=== PATIENT | female | born 1955 | race Caucasian/White ===

== ENCOUNTER → 2018-10-05 | Outpatient (CLI) | payer BC ==
--- NOTE | 2018-10-05 13:00 | MM ---
Reason for exam: screening (asymptomatic). Last mammogram was performed 2 years and 3 months ago. History: Patient is postmenopausal. Took hormonal contraceptives for 7 months beginning at age 18. Physical Findings: A clinical breast exam by your physician is recommended on an annual basis and results should be correlated with mammographic findings. MG 3D Screening Mammo W/Cad Bilateral CC and MLO view(s) were taken. Prior study comparison: July 02, 2016, bilateral MG 3d screening mammo w/cad. January 23, 2015, right breast MG work up mamm w CAD RT. The breast tissue is heterogeneously dense. This may lower the sensitivity of mammography. There are benign appearing round calcifications bilaterally. Asymmetric breast tissue left anterior upper quadrant stable from 2015. There is no discrete abnormality. ASSESSMENT: Benign, BI-RAD 2 RECOMMENDATION: Routine screening mammogram of both breasts in 1 year.
== END | disposition home or self-care (01) ==
LOC: RADMAMWWP 09:56
PROVIDERS: ATTEND Family Medicine
DX: Z12.31 Encounter for screening mammogram for malignant neoplasm of breast (principal)
CPT/HCPCS: 77063; 77067

== ENCOUNTER → 2019-12-27 | Outpatient (CLI) | payer BC ==
--- NOTE | 2019-12-28 11:01 | MM ---
Reason for exam: screening (asymptomatic). Last mammogram was performed 1 year and 3 months ago. History: Patient is postmenopausal. Took hormonal contraceptives for 7 months beginning at age 18. Physical Findings: A clinical breast exam by your physician is recommended on an annual basis and results should be correlated with mammographic findings. MG Screening Mammo w CAD Bilateral CC and MLO view(s) were taken. Prior study comparison: October 05, 2018, bilateral MG 3d screening mammo w/cad. July 02, 2016, bilateral MG 3d screening mammo w/cad. The breast tissue is heterogeneously dense. This may lower the sensitivity of mammography. Benign appearing bilateral calcifications. No suspicious abnormality. No significant changes when compared with prior studies. ASSESSMENT: Benign, BI-RAD 2 RECOMMENDATION: Routine screening mammogram of both breasts in 1 year.
== END | disposition home or self-care (01) ==
LOC: RADMAMWWP 09:18
PROVIDERS: ATTEND Family Medicine
DX: Z12.31 Encounter for screening mammogram for malignant neoplasm of breast (principal)
CPT/HCPCS: 77067

== ENCOUNTER → 2020-01-18 | Outpatient (CLI) | payer BC ==
--- NOTE | 2020-01-18 09:38 | BD ---
EXAMINATION TYPE: Axial Bone Density DATE OF EXAM: 01/18/2020 COMPARISON: 01/15/2015 CLINICAL HISTORY: Height: 64 IN Weight: 226 LBS FRAX RISK QUESTIONS: Secondary Osteoporosis: 3. Menopause before 45: PARTIAL HYST AGE 41 RISK FACTORS HISTORY OF: Family History of Osteoporosis: MOTHER Active: YES Postmenopausal woman: PARTIAL HYST AGE 41 MEDICATIONS: Additional Medications: VIT D, BLOOD PRESSURE MEDS, LYRICA, CYMBALTA EXAM MEASUREMENTS: Bone mineral densitometry was performed using the [employer] System. Bone mineral density as measured about the Lumbar spine is: ----- L1-L4(G/cm2): 1.058 T Score Values are as follows: ----- L2: -0.6 ----- L3: -1.6 ----- L4: -1.2 ----- L1-L4: -1.0 Bone mineral density has: Increased 1.0% since study of: 01/15/2015 Bone mineral density about the R hip (g/cm2): 0.975 Bone mineral density about the L hip (g/cm2): 0.935 T Score values are as follows: -----R Neck: -0.5 -----L Neck: -0.7 -----R Total: 0.2 -----L Total: -0.2 Bone mineral density has: Decreased -5.0% since study of: 01/15/2015 IMPRESSION: Borderline Osteopenia (T Score between -2.5 and -1). There is slightly increased risk of fracture and the patient may be considered for treatment. Re-Screen 2-5 years. NOTE: T-SCORE=SD OF THE YOUNG ADULT MEAN.
== END | disposition home or self-care (01) ==
LOC: RADBDWWP 08:32
PROVIDERS: ATTEND Nurse Practitioner Family
DX: Z78.0 Asymptomatic menopausal state (principal)
CPT/HCPCS: 77080

== ENCOUNTER → 2020-11-17 | Outpatient (CLI) | payer BC ==
--- NOTE | 2020-11-17 17:00 | MR ---
EXAMINATION TYPE: MR femur/thigh LT wo con DATE OF EXAM: 11/17/2020 COMPARISON: HISTORY: Left posterior thigh pain, radiates from knee to upper thigh after sitting on high stool for extended period of time. Multiplanar multiecho imaging of the left femur and thigh were obtained without contrast. FINDINGS: The soft tissues of the left thigh appear intact. There is no evidence of a soft tissue mass. There i s no pathologic fluid collection. Visualized left femur appears intact. I see no bony destructive pro cess. There is some spurring on the superior patella. There is narrowing of patellofemoral joint spac e. There is probably narrowing of the medial joint space of the left knee. The hip joint is not inclu ded on the exam. There is bilateral knee joint effusion. The subcutaneous fat is fairly symmetric in both thighs. IMPRESSION: No evidence of a discrete mass. Bilateral knee joint effusions. 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
== END | disposition home or self-care (01) ==
LOC: RADMRIMAIN 07:47
PROVIDERS: ATTEND Family Medicine
DX: M17.12 Unilateral primary osteoarthritis, left knee (principal)

== ENCOUNTER → 2021-05-31 | Outpatient (CLI) | payer BC ==
--- NOTE | 2021-06-05 14:39 | MM ---
Reason for exam: screening (asymptomatic). Last mammogram was performed 1 year and 5 months ago. History: Patient is postmenopausal. Took hormonal contraceptives for 7 months beginning at age 18. Physical Findings: A clinical breast exam by your physician is recommended on an annual basis and results should be correlated with mammographic findings. MG 3D Screening Mammo W/Cad Bilateral CC and MLO view(s) were taken. Prior study comparison: December 27, 2019, bilateral MG screening mammo w CAD. October 05, 2018, bilateral MG 3d screening mammo w/cad. The breast tissue is heterogeneously dense. This may lower the sensitivity of mammography. No significant changes when compared with prior studies. ASSESSMENT: Benign, BI-RAD 2 RECOMMENDATION: Routine screening mammogram of both breasts in 1 year.
== END | disposition home or self-care (01) ==
LOC: RADMAMWWP 10:57
PROVIDERS: ATTEND Family Medicine
DX: Z12.31 Encounter for screening mammogram for malignant neoplasm of breast (principal); Z78.0 Asymptomatic menopausal state; Z79.3 Long term (current) use of hormonal contraceptives
CPT/HCPCS: 77063; 77067

== ENCOUNTER → 2022-08-01 | Outpatient (CLI) | payer BC ==
--- NOTE | 2022-08-01 15:35 | BD ---
EXAMINATION TYPE: Axial Bone Density DATE OF EXAM: 08/01/2022 COMPARISON: NONE CLINICAL HISTORY: 67 years year old Female. ICD-10 CODE: M85.80 OTH DISRD OF BONE DENSITY Height: 5 FT 5 IN Weight: 228 FRAX RISK QUESTIONS: Alcohol (3 or more units per day): NO Family History (Parent hip fracture): NO Glucocorticoids (More than 3mos): NO (Ex: prednisone, prednisolone, methylprednisolone, dexamethasone, and hydrocortisone). History of Fracture in Adulthood: YES Secondary Osteoporosis: 1. Type 1 Diabetes: NO 2. Hyperthyroidism: NO 3. Menopause before 45: YES 4. Malnutrition: NO 5. Chronic liver disease: NO Rheumatoid Arthritis: NO Current Tobacco Use: NO RISK FACTORS HISTORY OF: Surgery to Spine/Hip(right/left)/Wrist (right/left): LEFT HIP REPLACEMENT When: 2020 Family History of Osteoporosis: YES Active: NO Diet low in dairy products/other sources of calcium: NO Postmenopausal woman: YES Take estrogen and/or progesterone medications: NO Lost more than 2 inches in height since high school: NO Frequent falls: NO Poor Health: GOOD Hyperparathyroidism: NO Adrenal Insufficiency: NO MEDICATIONS: Additional Medications: DICLOFENAC, PRAVASTATIN, DULOXETINE, PANTOPRAZOLE, ENALAPRIL, LYRICA, Additional History: EXAM MEASUREMENTS: Bone mineral densitometry was performed using the [employer] System. Bone mineral density as measured about the Lumbar spine is: ----- L1-L4(G/cm2): 1.108 T Score Values are as follows: ----- L1: 0.1 ----- L2: -0.2 ----- L3: -0.4 ----- L4: -1.8 ----- L1-L4: -0.6 Bone mineral density has: INCREASED 4.6 % since study of: 2014 Bone mineral density about the R hip (g/cm2): 1.016 T Score values are as follows: -----R Neck: -0.2 -----R Total: -0.3 Bone mineral density has: DECREASED -10.0 % since study of: 2014 FRAX%s: The graph provided illustrates a 10.7 % chance for a major osteoporotic fx and a 0.5 % chance for the hips probability for fx in 10 years time. IMPRESSION: Normal (Values between +1 and -1 indicate normal bone mass). Consider repeating this study in 5 year s or sooner if there is some new clinical indication. NOTE: T-SCORE=SD OF THE YOUNG ADULT MEAN.
== END | disposition home or self-care (01) ==
LOC: RADBDWWP 10:18
PROVIDERS: ATTEND Family Medicine
DX: M85.88 Other specified disorders of bone density and structure, other site (principal); Z78.0 Asymptomatic menopausal state
CPT/HCPCS: 77080

== ENCOUNTER → 2022-08-07 | Outpatient (CLI) | payer BC ==
--- NOTE | 2022-08-15 18:04 | MM ---
Reason for Exam: Screening (asymptomatic). Last mammogram was performed 1 year(s) and 2 month(s) ago. Patient History: Menarche at age 14. First Full-Term at age 19. Hysterectomy at age 40. Postmenopausal. Hormonal Contraceptives for 7 months from age 18 until age 19. Risk Values: Juanita 5 year model risk: 1.4%. NCI Lifetime model risk: 4.6%. Prior Study Comparison: 10/05/2018 Bilateral Screening Mammogram, [facility]. 12/27/2019 Bilateral Screening Mammogram, [facility]. 05/31/2021 Bilateral Screening Mammogram, [facility]. Tissue Density: The breast tissue is heterogeneously dense. This may lower the sensitivity of mammography. Findings: Analyzed By CAD. There is a rounded nodule in the upper outer aspect right breast. Benign calcifications left breast. Spherical calcifications are within the right breast. Findings are stable. No suspicious groups of microcalcifications, spiculated or lobular masses, architectural distortion or other secondary signs of malignancy are mammographically apparent. Overall Assessment: Benign, BI-RAD 2 Management: Screening Mammogram of both breasts in 1 year. A negative mammogram report should not preclude additional follow up of suspicious palpable abnormalities. Patient should continue monthly self breast exam. A clinical breast exam by your physician is recommended on an annual basis and results should be correlated with mammographic findings. Electronically signed and approved by: Bryant Nuñez D.O. Radiologis
== END | disposition home or self-care (01) ==
LOC: RADMAMWWP 09:15
PROVIDERS: ATTEND Family Medicine
DX: Z12.31 Encounter for screening mammogram for malignant neoplasm of breast (principal); Z78.0 Asymptomatic menopausal state
CPT/HCPCS: 77063; 77067

== ENCOUNTER → 2023-08-12 | Outpatient (CLI) | payer MEDICARE ==
[2023-08-12 17:02] LABS: ALT 48 U/L (8-44); AST 36 U/L (13-35); Albumin 4.7 d/dL (3.8-4.9); Albumin/Globulin Ratio 1.96 Ratio (1.60-3.17); Alkaline Phosphatase 87 U/L (41-126); Blood Urea Nitrogen 19.2 mg/dL (9.0-27.0); Calcium 10.4 mg/dL (8.7-10.3); Carbon Dioxide 24.3 mmol/L (21.6-31.8); Chloride 102 mmol/L (96-109); Globulin 2.4 d/dL (1.6-3.3); Glucose 146 mg/dL (70-110); Potassium 4.9 mmol/L (3.5-5.5); Sodium 140 mmol/L (135-145); Total Bilirubin 0.4 mg/dL (0.3-1.2); Total Protein 7.1 d/dL (6.2-8.2)
== END | disposition home or self-care (01) ==
LOC: LABWHC1 11:32
PROVIDERS: ATTEND Internal Medicine Endocrinology, Diabetes & Metabolism
DX: E21.0 Primary hyperparathyroidism (principal)
CPT/HCPCS: 36415; 80053; 82306; 82941; 83970; 84146

== ENCOUNTER → 2023-08-20 | Outpatient (CLI) | payer MEDICARE ==
--- NOTE | 2023-08-20 15:38 | US ---
EXAMINATION TYPE: US thyroid st tissue head/neck DATE OF EXAM: 08/20/2023 COMPARISON: NONE CLINICAL INDICATION: Female, 68 years old with history of E21.0 PRIMARY HYPERPARATHYROIDISM; abnormal labs GLAND SIZE: Right Lobe: 4.0 x 1.8 x 1.6 cm Overall Parenchyma: homogenous Left Lobe: 4.2 x 1.5 x 1.9 cm Overall Parenchyma: homogeneous Isthmus Thickness: .2 cm NODULES RIGHT: # of nodules measured on right: a couple measured largest one 1. 1.3 X .8 x 1.1 cm, lower medial, solid or almost completely solid, hypoechoic nodule, which is w ider than tall, with smooth margins, without echogenic foci. Prior size: 1.0 x .8 x .8 cm LEFT: # of nodules measured on left: subcentimeter. ISTHMUS: # of nodules measured in the isthmus: 0 Bilateral neck scanned, no evidence of lymphadenopathy. IMPRESSION: Mildly Suspicious: FNA if ? 2.5 cm; Follow if ? 1.5 cm at 1, 3, and 5 y 2017 ACR TI-RADS LEVEL: TR3 *Highest TI-RADS level nodule reported
== END | disposition home or self-care (01) ==
LOC: RADUSWWP 14:47
PROVIDERS: ATTEND Internal Medicine Endocrinology, Diabetes & Metabolism
DX: E21.0 Primary hyperparathyroidism (principal); E04.1 Nontoxic single thyroid nodule; R79.9 Abnormal finding of blood chemistry, unspecified
CPT/HCPCS: 76536

== ENCOUNTER → 2023-11-09 | Outpatient (CLI) | payer MEDICARE ==
[2023-11-09 16:37] LABS: ALT 48 U/L (8-44); AST 38 U/L (13-35); Albumin 4.6 g/dL (3.8-4.9); Albumin/Globulin Ratio 1.92 Ratio (1.60-3.17); Alkaline Phosphatase 96 U/L (41-126); Blood Urea Nitrogen 25.9 mg/dL (9.0-27.0); Calcium 10.1 mg/dL (8.7-10.3); Carbon Dioxide 24.2 mmol/L (21.6-31.8); Chloride 101 mmol/L (96-109); Globulin 2.4 g/dL (1.6-3.3); Glucose 164 mg/dL (70-110); Potassium 4.9 mmol/L (3.5-5.5); Sodium 139 mmol/L (135-145); Total Bilirubin 0.3 mg/dL (0.3-1.2)
== END | disposition home or self-care (01) ==
LOC: LABWHC1 07:38
PROVIDERS: ATTEND Internal Medicine Endocrinology, Diabetes & Metabolism
DX: E21.0 Primary hyperparathyroidism (principal)
CPT/HCPCS: 36415; 80053; 82306; 83970

== ENCOUNTER → 2024-06-17 | Outpatient (CLI) | payer MEDICARE ==
--- NOTE | 2024-07-03 23:18 | P.PCN ---
Date of Procedure: 06/17/24 Operative Findings: Home sleep study report Date of service is 06/17/2024 Pertinent history This is a 69-year-old male patient seen in consultation in the office as the patient has been experiencing sleepwalking over the past 6 months. The patient was suspected to have obstructive sleep apnea as the patient has gained significant amount of weight and the patient has been complaining of sleep fragmentation and increased sleepiness with an Haviland score of 16/24. The patient has chronic neuropathic pain and is maintained on a combination of Cymbalta and Lyrica. Noted both of this medication could potentially help or contribute to the symptoms of sleepwalking. She also had symptoms of restless leg as the patient reported chronic restlessness in lower extremities and ongoing urge to move his legs at nighttime. Based on that, the patient was started on Requip 1 mg at bedtime. A home sleep study was also ordered accordingly. Comorbid conditions include diabetes mellitus, hypertension hyperlipidemia and previous history of spinal stenosis. She also has fibromyalgia. Pertinent physical findings Body mass index of 38.9. Weight is 234 pounds. Technical description The [email or web address] system was used to complete his home sleep study. This is a type III home sleep study. The total recording duration was 10 hours and 12 minutes. The study started at 9:47 PM and ended at 7:59 AM. There was a total of 9 hours and 39 minutes of flow monitoring and 9 hours and 16 minutes of oxygen saturation monitoring. This was considered to be an adequate study Results The respiratory analysis showed a total of 2 obstructive apneas and 38 obstructive hypopneas and the resulting AHI was 4.1 Oxygenation analysis The baseline pulse ox while awake was 94% with an average pulse ox of 90% during sleep and a minimum pulse ox of 76%. The patient spent approximately 27 minutes of sleep time below pulse ox of 89% Cardiac summary The average heart rate was 83 with a minimum heart rate of 70 and a maximum heart rate of 109 Assessment Snoring without significant sleep breathing disorder and the patient's AHI was 4.1 Sleepwalking Restless leg syndrome Spinal stenosis Diabetes mellitus Hypertension Hyperlipidemia Fibromyalgia Plan No need for CPAP therapy at this point in time Continue Requip 1 mg at bedtime Emphasized importance of maintaining regular sleep schedule and keeping good sleep hygiene principles Of treatment of sleep walking will be further modified based on her clinical symptoms. Will continue to follow.
== END ==
LOC: 3 N SLEEP 10:58
PROVIDERS: ATTEND Internal Medicine Critical Care Medicine
DX: R06.83 Snoring (principal); G47.10 Hypersomnia, unspecified; F51.3 Sleepwalking [somnambulism]; G25.81 Restless legs syndrome; E11.9 Type 2 diabetes mellitus without complications; M48.00 Spinal stenosis, site unspecified; E78.5 Hyperlipidemia, unspecified; I10 Essential (primary) hypertension; M79.7 Fibromyalgia; Z88.8 Allergy status to other drugs, medicaments and biological substances

== ENCOUNTER → 2024-09-29 | Outpatient (CLI) | payer MEDICARE ==
--- NOTE | 2024-09-29 12:32 | CA ---
Lexiscan Nuclear Stress Test Report Name: Lauren Alvarez Exam Date: 09/29/2024 09:45 Exam Location: [facility] Ht (in): 65 Wt (lb): 197 BSA: 1.97 Ordering Phys: Ellis Borja MD Referring Phys: Eve De Luna Technologist: Gilberto Bourgeois Age: 69 Gender: F : 1955 Procedure CPT: Indications: I25.10 Athscl heart disease ICD-10 Codes: Patient History: HTN, DIABETIC, HYPERCHOLESTEROLEMIA, FAMILY HX OF HEART DISEASE Medications: Meds past 24 hrs: Pretest Chest Pain: STRESS TEST Lexiscan Protocol Exercise Duration (min:sec): 02:[address] Depressions (mm): Angina Score: Romero Score: Resting HR (bpm): 69 Peak HR (bpm): 95 Resting BP (mmHg): 155 / 90 Peak BP (mmHg): 160 / 83 MPHR: 150 Target HR: 128 % MPHR: 63 METS: 1.0 Total Dose: Peak Dose: Atropine: Double Product: 75209 BP Response: Stress Termination: INFUSION COMPLETE Stress Symptoms: NO SYMPTOMS Stress Summary: ECG ANALYSIS Resting ECG: Normal sinus rhythm normal axis normal intervals Stress ECG: Patient was given intravenous Lexiscan as a protocol did not have chest pain or diagnostic ST segment depression CONCLUSIONS Negative stress test by EKG criteria Cardiolite portion of the stress test will be reported separate Dr. Renan Tovar MD (Electronically Signed) Final Date: 29 September 2024 12:32
--- NOTE | 2024-09-29 13:45 | NM ---
EXAMINATION TYPE: NM stress lexiscan cardiolite DATE OF EXAM: 09/29/2024 COMPARISON: NONE CLINICAL INDICATION: Female, 69 years old with history of I25.10 ATHSCL HEART DISEASE; TECHNIQUE: After the intravenous administration of 7.37 mCi Tc 99m Sestamibi - Cardiolite resting SP ECT images acquired 45 minutes post injection. The patient received 0.4mg Lexiscan, 25.3 mCi Tc 99m Sestamibi - Stress images obtained [address] injection FINDINGS: Review of stress and rest SPECT images demonstrates large defect along the anteroseptal wall more pro nounced on rest suggesting attenuation artifact. There is augmentation of this portion on gated adalberto sis. Possible reversibility anterolateral wall at the apex also augments suggesting attenuation artif act. Gated analysis shows normal wall motion with an estimated left ventricular ejection fraction of %. TID is calculated at 1.09, upper limits of normal. IMPRESSION: Suspect prominent attenuation artifact along the anteroseptal wall as the defect is more pronounced o n rest. Additional attenuation artifact suspected at the apical anterolateral wall rather than a smal l area of reversibility. Correlate with EKG findings and further workup if clinically indicated. [facility], , 09/29/2024 1:43 PM
== END | disposition home or self-care (01) ==
LOC: RADNMMAIN 08:12
PROVIDERS: ATTEND Family Medicine
CPT/HCPCS: 78452; 93017

== ENCOUNTER → 2024-10-06 | Outpatient (CLI) | payer MEDICARE ==
--- NOTE | 2024-10-08 18:10 | BD ---
EXAMINATION TYPE: Axial Bone Density DATE OF EXAM: 10/06/2024 CLINICAL HISTORY: 69 years old Female. ICD-10 CODE: M85.80 DISORDER OF BONE , Additional History: Height: 62.7 Weight: 192 FRAX RISK QUESTIONS: History of Fracture in Adulthood: yes Secondary Osteoporosis: 3. Menopause before 45: yes RISK FACTORS HISTORY OF: Surgery to Spine/Hip(right/left)/Wrist (right/left): left hip replacement When: 2020 MEDICATIONS: EXAM MEASUREMENTS: Bone mineral densitometry was performed using the [employer] System. Bone mineral density as measured about the Lumbar spine is: ----- L1-L4(G/cm2): 1.192 T Score Values are as follows: ----- L1: 3.1 ----- L2: -0.4 ----- L3: -0.4 ----- L4: -1.3 ----- L1-L4: 0.1 Z Score Values are as follows: ----- L1: 4.0 ----- L2: 0.5 ----- L3: 0.5 ----- L4: -0.4 ----- L1-L4: 1.0 Bone mineral density has: Increased 7.6% since study of: 08-01-22 Bone mineral density about the R hip (g/cm2): 0.968 T Score values are as follows: -----R Neck: -0.3 -----R Total: -0.3 Z Score values are as follows: -----R Neck: 0.9 -----R Total: 0.6 Bone mineral density has: Decreased -0.6% since study of: 08-01-22 FRAX%s: The graph provided illustrates a 11.4% chance for a major osteoporotic fx and a 0.7% chance f or the hips probability for fx in 10 years time. IMPRESSION: Normal (Values between +1 and -1 indicate normal bone mass). Consider repeating this study in 5 year s or sooner if there is some new clinical indication. NOTE: T-SCORE=SD OF THE YOUNG ADULT MEAN. [facility], , 10/08/2024 6:07 PM
== END | disposition home or self-care (01) ==
LOC: RADBDWWP 08:56
PROVIDERS: ATTEND Family Medicine
DX: M89.9 Disorder of bone, unspecified (principal); Z78.0 Asymptomatic menopausal state
CPT/HCPCS: 77080

== ENCOUNTER → 2024-11-15 | Outpatient (CLI) | payer MEDICARE ==
--- NOTE | 2024-11-16 09:28 | MM ---
Reason for Exam: Screening (asymptomatic). Last mammogram was performed 1 year(s) and 3 month(s) ago. Patient History: Menarche at age 14. First Full-Term at age 19. Left ovary removed at age 40. Right ovary removed at age 40. Hysterectomy at age 40. Postmenopausal. Hormonal Contraceptives for 7 months from age 18 until age 19. Risk Values: Juanita 5 year model risk: 1.4%. NCI Lifetime model risk: 4.1%. Prior Study Comparison: 10/05/2018 Bilateral Screening Mammogram, [facility]. 12/27/2019 Bilateral Screening Mammogram, [facility]. 05/31/2021 Bilateral Screening Mammogram, [facility]. 08/07/2022 Bilateral MG 3D screening mammo w/cad, [facility]. 08/12/2023 Bilateral MG 3D screening mammo w/cad, [facility]. Tissue Density: The breasts are heterogeneously dense, which may obscure small masses. Findings: Analyzed By CAD. Right breast: There is no suspicious group of microcalcifications or new suspicious mass. Left breast: There is no suspicious group of microcalcifications or new suspicious mass. Overall Assessment: Negative, BI-RAD 1 Management: Screening Mammogram of both breasts in [address] [facility] will attempt to contact patient to return for supplemental views and ultrasound if indicated. Patient should continue monthly self-breast exams. A clinical breast exam by your physician is recommended on an annual basis. This exam should not preclude additional follow-up of suspicious palpable abnormalities. Note on Juanita scores and lifetime risk: 1. A Juanita score greater than 3% is considered moderate risk. If this is the case, consider specialist referral to assess eligibility for a risk reducing agent. 2. If overall lifetime risk for the development of breast cancer is 20% or higher, the patient may qualify for future screening with alternating mammogram and breast MRI. [facility], , 11/16/2024 9:25 AM. Electronically signed and approved by: Juan Marquez DO
== END | disposition home or self-care (01) ==
LOC: RADMAMWWP 09:44
PROVIDERS: ATTEND Family Medicine
DX: Z12.31 Encounter for screening mammogram for malignant neoplasm of breast (principal); R92.333 Mammographic heterogeneous density, bilateral breasts; Z78.0 Asymptomatic menopausal state
CPT/HCPCS: 77063; 77067